=== PATIENT | male | born 1945 | race Caucasian/White ===

== ENCOUNTER 2020-08-31 10:02 | Inpatient (IN) | payer OTHER ==
[~2020-08-31] VITALS: Ht 177.8 cm; Wt 80.2 kg
[~2020-08-31 10:02] MED LIST: ALLO300T2 PO; ATOR20TA50 PO; FINA5TAB4 PO; HYDR12.56 PO; LISI30TA4 PO; OMEP20TA PO
[2020-08-31] MEDS ORDERED: CIPROFLOXACIN 400MG/200ML 200 ML IV ONE (11:51)
[2020-08-31] MEDS ORDERED: TETRACAINE 1% INJ 2 ML VIAL IJ ONE (13:56)
[2020-08-31] MEDS ORDERED: MIDAZOLAM HCL 1MG/1ML-2 ML VIAL ONE (14:01)
[2020-08-31 15:29] LABS: Albumin 2.7 g/dL (3.4-5.0); Calcium 8.3 mg/dL (8.5-10.1); Potassium 5.5 mmol/L (3.5-5.1)
[2020-08-31 15:31] LABS: BUN/Creatinine Ratio 24.3
[2020-08-31 15:34] LABS: Bilirubin, Total 0.4 mg/dL (0.2-1.0); Total Protein 7.2 g/dL (6.4-8.2)
[2020-08-31] MEDS ORDERED: ACETAMINOPHEN 325 MG TAB PO PRN (16:15)
[2020-08-31] MEDS ORDERED: HYDROcodone-ACET 5/325MG TAB PO PRN (16:15)
[2020-08-31] MEDS ORDERED: ONDANSETRON HCL 4 MG/2 ML VIAL IV PRN (16:15)
[2020-08-31] MEDS ORDERED: NITROGLYCERIN 0.4 MG SL TAB SL PRN (16:15)
[2020-08-31] MEDS ORDERED: MORPHINE SULF INJ 2 MG/ML SYRINGE 1ML IV PRN ×2 (16:15)
[2020-08-31 18:00] VITALS: BP 101/67
[2020-08-31] MEDS: SOD CHL 0.45% 1,000 ML IV SCH (18:06)
[2020-08-31] MEDS ORDERED: InsuLIN REG 1unit/0.01ml Soln (100units/ml) IV ONE (19:30)
[2020-08-31] MEDS ORDERED: CALCIUM GLUC 4.65meq/50ml D5AE 50 ML IV ONE (19:30)
[2020-08-31] MEDS ORDERED: DEXTROSE (50%) 50ML SYRG IV ONE (19:30)
[2020-08-31 22:00] VITALS: BP 110/52
[2020-08-31 22:33] LABS: BUN/Creatinine Ratio 24.9; Potassium 4.9 mmol/L (3.5-5.1)
[2020-09-01] MEDS: SOD CHL 0.45% 1,000 ML IV SCH (02:27)
[2020-09-01 05:00] VITALS: BP 93/57
[2020-09-01 06:52] LABS: Basophils # (auto) 0 10 ^3/uL (0-0.2); Eosinophils # (auto) 0 10 ^3/uL (0-0.8); Eosinophils % (auto) 0.3 % (0.0-7.0); Hematocrit 37.8 % (41.0-53.0); Hemoglobin 12.9 g/dL (13.5-17.5); Lymphocytes # (auto) 1.1 10 ^3/uL (0.4-5.4); Lymphocytes % (auto) 11.6 % (10.0-50.0); Mean Corpuscular Hemoglobin 30.1 pg (28.0-32.0); Mean Corpuscular Hgb Conc. 34.3 g/dL (32.0-36.0); Mean Corpuscular Volume 87.9 fL (80.0-100.0); Monocytes # (auto) 0.8 10 ^3/uL (0-1.3); Monocytes % (auto) 8.7 % (0.0-12.0); Neutrophils # (auto) 7.6 10 ^3/uL (1.6-8.6); Neutrophils % (auto) 79.4 % (37.0-80.0); Nucleated Red Blood Cells % 0.1 %; Platelet Count (auto) 307 10^3/uL (140-450); Red Cell Distribution Width 14.1 % (11.8-14.3); White Blood Cell 9.5 10^3/uL (4.4-10.8)
[2020-09-01 06:59] LABS: BUN/Creatinine Ratio 25.6; Calcium 8.5 mg/dL (8.5-10.1); Magnesium 2.2 mg/dL (1.6-2.6); Potassium 4.9 mmol/L (3.5-5.1)
[2020-09-01 09:13] VITALS: BP 100/53
[2020-09-01] MEDS ORDERED: SODIUM BICARBONATE 50ML VIAL 50 ML in D5W/SOD CHL 0.45% 1,000 ML IV SCH (09:30)
[2020-09-01] MEDS: FINASTERIDE 5 MG TAB PO SCH (10:32)
[2020-09-01] MEDS: ATORVASTATIN 20 MG TAB PO SCH (10:32)
[2020-09-01] MEDS: PANTOPRAZOLE 40 MG TAB PO SCH (10:32)
[2020-09-01] MEDS: ALLOPURINOL 100 MG TAB PO SCH (10:33)
[2020-09-01] MEDS ORDERED: LIDOCAINE 2% JELLY 11ml (GLYDO) UR ONE (10:45)
[2020-09-01] MEDS: cefTRIAXone 1GM/50ML D5W 50 ML IV SCH (12:15)
[2020-09-01 13:00] VITALS: BP 95/52
[2020-09-01 13:09] LABS: Urine Bacteria MANY /hpf (None Seen); Urine Blood 3+ /uL (Negative); Urine Specific Gravity 1.015 (1.001-1.035); Urine WBC 1502 /hpf (0 - 3); Urine WBC Clumps PRESENT /hpf (None Seen)
[2020-09-01 16:13] LABS: Protein, Urine 79.6 mg/dL (0.0-11.9)
[2020-09-01 16:30] VITALS: BP 90/47
[2020-09-01] MEDS: SODIUM BICARBONATE 50ML VIAL 50 ML in D5W/SOD CHL 0.45% 1,000 ML IV SCH (20:04)
[2020-09-01 22:00] VITALS: BP 90/45
[2020-09-02 05:00] VITALS: BP 95/54
[2020-09-02] MEDS: SODIUM BICARBONATE 50ML VIAL 50 ML in D5W/SOD CHL 0.45% 1,000 ML IV SCH ×2 (06:34→16:53)
[2020-09-02 06:56] LABS: Hematocrit 34.4 % (41.0-53.0); Hemoglobin 11.7 g/dL (13.5-17.5); Mean Corpuscular Hemoglobin 29.7 pg (28.0-32.0); Mean Corpuscular Hgb Conc. 33.9 g/dL (32.0-36.0); Mean Corpuscular Volume 87.6 fL (80.0-100.0); Platelet Count (auto) 230 10^3/uL (140-450); Red Blood Cells 3.93 10^6/uL (4.5-5.90); Red Cell Distribution Width 13.8 % (11.8-14.3); White Blood Cell 8.6 10^3/uL (4.4-10.8)
[2020-09-02 07:12] LABS: Potassium 4.5 mmol/L (3.5-5.1)
[2020-09-02 07:19] LABS: Basophils % (manual) 0 (0.0-2.0); Blast Cells 0; Promyelocytes % 0; Reactive Lymphocytes 0
[2020-09-02 07:24] LABS: BUN/Creatinine Ratio 32.1; Calcium 8.4 mg/dL (8.5-10.1)
[2020-09-02 08:03] LABS: Band Neutrophils % (manual) 15; Eosinophils % (manual) 1 (0-7); Lymphocytes % (manual) 17 (10.0-50.0); Metamyelocytes % 4; Monocytes % (manual) 5 (0-12); Myelocytes % 1
[2020-09-02 08:58] VITALS: BP 113/55
[2020-09-02] MEDS: cefTRIAXone 1GM/50ML D5W 50 ML IV SCH (09:32)
[2020-09-02] MEDS: ALLOPURINOL 100 MG TAB PO SCH (09:33)
[2020-09-02] MEDS: PANTOPRAZOLE 40 MG TAB PO SCH (09:33)
[2020-09-02] MEDS: ATORVASTATIN 20 MG TAB PO SCH (09:33)
[2020-09-02] MEDS: FINASTERIDE 5 MG TAB PO SCH (09:33)
[2020-09-02] MEDS: HEPARIN SODIUM (PORCINE) 5000 UNITS/ML 1ML VIAL SC SCH ×2 (12:04→22:29)
[2020-09-02 12:49] VITALS: BP 107/41
[2020-09-02 16:40] VITALS: BP 102/56
[2020-09-02 22:00] VITALS: BP 100/55
[2020-09-02] MEDS ORDERED: TEMAZEPAM 15 MG CAP PO ONE (22:45)
[2020-09-03 05:00] VITALS: BP 109/55
[2020-09-03 07:02] LABS: Calcium 7.6 mg/dL (8.5-10.1)
[2020-09-03 07:04] LABS: BUN/Creatinine Ratio 32.8
[2020-09-03 09:00] VITALS: BP 124/59
[2020-09-03] MEDS: HEPARIN SODIUM (PORCINE) 5000 UNITS/ML 1ML VIAL SC SCH ×2 (09:36→22:51)
[2020-09-03] MEDS: cefTRIAXone 1GM/50ML D5W 50 ML IV SCH (09:39)
[2020-09-03] MEDS: FINASTERIDE 5 MG TAB PO SCH (09:39)
[2020-09-03] MEDS: ALLOPURINOL 100 MG TAB PO SCH (09:39)
[2020-09-03] MEDS: PANTOPRAZOLE 40 MG TAB PO SCH (09:39)
[2020-09-03] MEDS: ATORVASTATIN 20 MG TAB PO SCH (09:39)
[2020-09-03] MEDS: SODIUM BICARBONATE 50ML VIAL 50 ML in D5W/SOD CHL 0.45% 1,000 ML IV SCH ×2 (10:15→17:00)
[2020-09-03 13:00] VITALS: BP 110/59
[2020-09-03 17:00] VITALS: BP 111/55
[2020-09-03 22:00] VITALS: BP 114/61
[2020-09-04] MEDS: SODIUM BICARBONATE 50ML VIAL 50 ML in D5W/SOD CHL 0.45% 1,000 ML IV SCH ×2 (00:30→10:30)
[2020-09-04 05:00] VITALS: BP 104/63
[2020-09-04 07:13] LABS: Calcium 7.8 mg/dL (8.5-10.1); Potassium 3.9 mmol/L (3.5-5.1)
[2020-09-04 07:15] LABS: BUN/Creatinine Ratio 24.1
[2020-09-04 09:00] VITALS: BP 116/63
[2020-09-04] MEDS ORDERED: DOXYCYCLINE 100MG/250ML 250 ML IV SCH (09:15)
[2020-09-04] MEDS: PANTOPRAZOLE 40 MG TAB PO SCH (09:43)
[2020-09-04] MEDS: ATORVASTATIN 20 MG TAB PO SCH (09:44)
[2020-09-04] MEDS: FINASTERIDE 5 MG TAB PO SCH (09:45)
[2020-09-04] MEDS: HEPARIN SODIUM (PORCINE) 5000 UNITS/ML 1ML VIAL SC SCH (09:55)
[2020-09-04] MEDS ORDERED: ALLOPURINOL 300 MG TAB PO SCH (10:00)
[2020-09-04 13:00] VITALS: BP 121/66
[2020-09-04 14:17] VITALS: BP 116/63
== END 2020-09-04 16:00 | disposition home health service (06) | DRG 682 ==
LOC: SUR 10:02 → TELE-WESTW 16:55
PROVIDERS: ADMIT Urology; ATTEND Urology
PROC: 0T9B70Z Drainage of Bladder with Drainage Device, Via Natural or Artificial Opening (ICD-10-PCS; principal; 2020-09-01)
DX: N17.9 Acute kidney failure, unspecified (principal); J96.00 Acute respiratory failure, unspecified whether with hypoxia or hypercapnia; N39.0 Urinary tract infection, site not specified; J98.11 Atelectasis; E87.2 Acidosis; N13.8 Other obstructive and reflux uropathy; N40.1 Benign prostatic hyperplasia with lower urinary tract symptoms; I95.9 Hypotension, unspecified; E86.0 Dehydration; K21.9 Gastro-esophageal reflux disease without esophagitis; E78.5 Hyperlipidemia, unspecified; I12.9 Hypertensive chronic kidney disease with stage 1 through stage 4 chronic kidney disease, or unspecified chronic kidney disease; N18.32 Chronic kidney disease, stage 3b; N32.0 Bladder-neck obstruction; N39.43 Post-void dribbling; R33.8 Other retention of urine; D63.1 Anemia in chronic kidney disease; Z20.822 Contact with and (suspected) exposure to COVID-19; Z80.8 Family history of malignant neoplasm of other organs or systems; Z53.8 Procedure and treatment not carried out for other reasons
CPT/HCPCS: 36415; 71045; 76775; 80048; 80053; 81001; 82570; 83735; 83880; 84156; 84300; 85007; 85025; 85027; 87040; 87086; 87088; 87186; G0378; J0610; J0696; J1815; J2250; J3490

== ENCOUNTER 2020-10-05 08:10 | Day surgery (SDC) | payer OTHER ==
[~2020-10-05] VITALS: Ht 177.8 cm; Wt 81.6 kg
[~2020-10-05 08:10] MED LIST changes: -HYDR12.56 PO; -LISI30TA4 PO
[2020-10-05] MEDS ORDERED: CIPROFLOXACIN 400MG/200ML 200 ML IV ONE (08:35)
[2020-10-05] MEDS ORDERED: NEOMYCIN-BACITRACIN-POLYM 15GM TOP OINT TOP ONE (09:48)
[2020-10-05] MEDS ORDERED: LIDOCAINE W/ EPINEPHRINE 1% 20ML VIAL ONE (09:48)
[2020-10-05] MEDS ORDERED: MIDAZOLAM HCL 2MG/2ML 2ml VIAL (1mg/ml) ONE (10:02)
[2020-10-05] MEDS ORDERED: fentaNYL CITRATE 100 MCG/2 ML VL ONE (10:02)
[2020-10-05] MEDS ORDERED: GENTAMICIN SULF 80 MG/2 ML VIAL ONE (11:09)
[2020-10-05] MEDS ORDERED: HYDROmorphone HCL 2 MG/ML VL IV PRN (12:00)
[2020-10-05] MEDS ORDERED: ONDANSETRON HCL 4 MG/2 ML VIAL IV PRN (12:00)
[2020-10-05 14:00] VITALS: BP 172/83
== END 2020-10-05 15:20 | disposition home or self-care (01) ==
LOC: SUR 08:10
PROVIDERS: ATTEND Urology
DX: N39.0 Urinary tract infection, site not specified (principal); R33.8 Other retention of urine; N47.1 Phimosis; K21.9 Gastro-esophageal reflux disease without esophagitis; I10 Essential (primary) hypertension; H26.8 Other specified cataract; M10.9 Gout, unspecified; Z20.822 Contact with and (suspected) exposure to COVID-19; Z98.890 Other specified postprocedural states; Z79.899 Other long term (current) drug therapy
CPT/HCPCS: 52601; 54161; 88302; 88305; 88342; J0744; J1580; J2250; J3010; J7030; U0003

== ENCOUNTER → 2021-06-21 | Day surgery (SDC) | payer OTHER ==
[~2021-06-21] MED LIST changes: +AMLO-489 PO; +DexAMETHasone SOD PHOS 10MG/1ML VIAL INJ ONE; +HYDROmorphone HCL 2 MG/ML VL IV PRN; +LABETALOL HCL 5 MG/ML 4ML SYRINGE IV PRN; +LIDOCAINE 2% JELLY 11ml (GLYDO) ONE; +LISI30TA4 PO; +MEPERIDINE HCL (50 MG/ML) 1 ML VIAL ONE; +MIDAZOLAM HCL 2MG/2ML 2ml VIAL (1mg/ml) IV PRN; +MIDAZOLAM HCL 2MG/2ML 2ml VIAL (1mg/ml) ONE; +MORPHINE SULFATE 4 MG/ML SYR/VIAL IV PRN; +ONDANSETRON HCL 4 MG/2 ML VIAL IV PRN; +PROPOFOL 10 MG/ML 20 ML IV ONE; +SUCCINYLCHOLINE CHLORIDE 20 MG/ML 10ML VIAL IV ONE; +TAMS0.4C36 PO; +ceFAZolin 1GM/50ML 100 ML IV ONE; +ePHEDrine SULFATE 50 MG/ML AMP IV PRN; +fentaNYL CITRATE 100 MCG/2 ML VL ONE
[2021-06-21 11:00] VITALS: BP 147/84
== END | disposition home or self-care (01) ==
LOC: SUR 07:10
PROVIDERS: ATTEND Urology
DX: D49.4 Neoplasm of unspecified behavior of bladder (principal); I10 Essential (primary) hypertension; E78.5 Hyperlipidemia, unspecified; K21.9 Gastro-esophageal reflux disease without esophagitis; Z98.41 Cataract extraction status, right eye; Z87.891 Personal history of nicotine dependence; Z80.8 Family history of malignant neoplasm of other organs or systems; Z98.42 Cataract extraction status, left eye; Z98.890 Other specified postprocedural states; Z79.899 Other long term (current) drug therapy; Z20.822 Contact with and (suspected) exposure to COVID-19
CPT/HCPCS: 52224; 88305; 88342; J0330; J0690; J1100; J2175; J2250; J2405; J2704; J3010; J7030; U0003